=== PATIENT | female | born 2000 | race Caucasian/White ===

== ENCOUNTER 2019-03-21 14:17 | Emergency (ER) | payer MEDICAID, OTHER ==
[2019-03-21 15:32] VITALS: BP 123/75
--- NOTE | 2019-03-21 15:33 | Emergency Department Report ---
Chief Complaint: Skin Rash Stated Complaint: POISON MEG BREAKOUT Time Seen by Provider: 03/21/19 15:30 - HPI History of Present Illness: pt has rash to the face and right forearm (+) itching no drainage no fever no N/V/D states she was hiding eggs for her daughter went to [facility] got a cream OTC has not been helping has not using bendadryl no pmhx no daily meds no allergies to meds non smoker non drinker no drug use MSE screening note: Focused history and physical exam performed. ED Disposition for MSE Condition: Stable Referrals: JACKY FELTON MD [Primary Care Provider] - 3-5 Days
--- NOTE | 2019-03-21 16:34 | Emergency Department Report ---
- General Chief complaint: Skin Rash Stated complaint: POISON MEG BREAKOUT Time Seen by Provider: 03/21/19 15:30 Source: patient Mode of arrival: Ambulatory Limitations: No Limitations - History of Present Illness Initial comments: pt is a 18 yo female who has rash to the face and right forearm that began a week ago. She states she was out in the yard hiding easter eggs and it began shortly after that. She endorses itching. She denies any drainage, fever, N/V/D. Pt states that she went to [facility] got a cream OTC has not been helping. She has not been using benadryl. no pmhx, no daily meds, no allergies to meds, non smoker, non drinker, no drug use - Related Data Previous Rx's Medication Instructions Recorded Last Taken Type Hydrocortisone 0.5% 1 applicatio TP TID #1 tube 03/21/19 Unknown Rx [Hydrocortisone 0.5% CREAM] Prednisone [predniSONE 10 mg 10 mg PO .TAPER #1 tab.ds.pk 03/21/19 Unknown Rx (6-Day Pack, 21 Tabs)] Allergies Allergy/AdvReac Type Severity Reaction Status Date / Time No Known Allergies Allergy Verified 03/21/19 14:21 Abscess Boil HPI - HPI Chief Complaint: Skin Rash Stated Complaint: POISON MEG BREAKOUT Time Seen by Provider: 03/21/19 15:30 Home Medications: Previous Rx's Medication Instructions Recorded Last Taken Type Hydrocortisone 0.5% 1 applicatio TP TID #1 tube 03/21/19 Unknown Rx [Hydrocortisone 0.5% CREAM] Prednisone [predniSONE 10 mg 10 mg PO .TAPER #1 tab.ds.pk 03/21/19 Unknown Rx (6-Day Pack, 21 Tabs)] Allergies/Adverse Reactions: Allergies Allergy/AdvReac Type Severity Reaction Status Date / Time No Known Allergies Allergy Verified 03/21/19 14:21 ED Review of Systems ROS: Stated complaint: POISON MEG BREAKOUT Other details as noted in HPI Comment: All other systems reviewed and negative ED Past Medical Hx - Past Medical History Hx Hypertension: No Hx Congestive Heart Failure: No Hx Diabetes: No Hx Deep Vein Thrombosis: No Hx Renal Disease: No Hx Sickle Cell Disease: No Hx Seizures: No Hx Asthma: Yes Hx COPD: No Hx HIV: No - Social History Smoking Status: Never Smoker Substance Use Type: None - Medications Home Medications: Home Medications Medication Instructions Recorded Confirmed Last Taken Type Hydrocortisone 0.5% 1 applicatio TP TID #1 tube 03/21/19 Unknown Rx [Hydrocortisone 0.5% CREAM] Prednisone [predniSONE 10 mg 10 mg PO .TAPER #1 tab.ds.pk 03/21/19 Unknown Rx (6-Day Pack, 21 Tabs)] ED Physical Exam - General Limitations: No Limitations General appearance: alert, in no apparent distress - Head Head exam: Present: atraumatic, normocephalic - Eye Eye exam: Present: normal appearance - ENT ENT exam: Present: mucous membranes moist - Respiratory Respiratory exam: Absent: respiratory distress - Cardiovascular Cardiovascular Exam: Present: regular rate - Neurological Exam Neurological exam: Present: alert, oriented X3 - Psychiatric Psychiatric exam: Present: normal affect, normal mood - Skin Skin exam: Present: warm, dry, other (erythematous raised rash with areas of coalescence on the face and right forearm, no obvious weeping, no signs of infection ) ED Course Vital Signs 03/21/19 15:30 Temperature 98.6 F Pulse Rate 74 Respiratory 18 Rate Blood Pressure 123/75 O2 Sat by Pulse 98 Oximetry ED Medical Decision Making - Medical Decision Making pt is a 18 yo female who has rash to the face and right forearm that began a week ago. She states she was out in the yard hiding easter eggs and it began shortly after that. She endorses itching. She denies any drainage, fever, N/V/D. Pt states that she went to [facility] got a cream OTC has not been helping. She has not been using benadryl. no pmhx, no daily meds, no allergies to meds, non smoker, non drinker, no drug use. appears to have come into contact with poison bekah. no signs of secondary infection. will give pt hydrocortisone cream to use on the arm only, and steroids, and advised to take benadryl OTC. Advised pt to follow up with PCP in the next 2-3 days. Pt given list of community resources. Return to the ED for any new or worsening symptoms. Critical care attestation.: If time is entered above; I have spent that time in minutes in the direct care of this critically ill patient, excluding procedure time. ED Disposition Clinical Impression: Poison bekah Contact dermatitis Qualifiers: Contact dermatitis type: allergic Contact dermatitis trigger: non-food plants Qualified Code(s): L23.7 - Allergic contact dermatitis due to plants, except food Disposition: DC-01 TO HOME OR SELFCARE Is pt being admited?: No Does the pt Need Aspirin: No Condition: Stable Instructions: Poison Bekah (ED) Additional Instructions: Please use medication as prescribed. Do not use the ointment on the face. Take benadryl over the counter for itching. Please see a primary care doctor in the next 2-3 days. Given list of community resources. Return to the emergency room for any new or worsening symptoms as discussed. Prescriptions: Hydrocortisone 0.5% [Hydrocortisone 0.5% CREAM] 1 applicatio TP TID #1 tube Prednisone [predniSONE 10 mg (6-Day Pack, 21 Tabs)] 10 mg PO .TAPER #1 tab.ds.pk [facility] MD GUILLERMO [Primary Care Provider] - 2-3 Days Time of Disposition: 16:34 Print Language: CZECH
== END 2019-03-21 16:51 | disposition home or self-care (01) ==
LOC: ED 14:17
DX: L23.7 Allergic contact dermatitis due to plants, except food (principal); J45.909 Unspecified asthma, uncomplicated

== ENCOUNTER 2022-05-03 05:28 | Inpatient (IN) | payer MEDICAID ==
[2022-05-03] MEDS ORDERED: METHYLERGONOVINE MALEATE 0.2 MG/ML VIAL IM PRN (06:20)
[2022-05-03] MEDS ORDERED: miSOPROStol 200 MCG TAB PR PRN (06:20)
[2022-05-03] MEDS ORDERED: BUTORPHANOL 2 MG/1 ML INJ IV PRN (06:20)
[2022-05-03] MEDS ORDERED: MINERAL OIL 30 ML ORAL LIQD PO PRN (06:20)
[2022-05-03] MEDS ORDERED: LIDOCAINE (2%) 20 MG/1 ML VIAL 20 ML MDV INFILTRATI ONE (06:20)
[2022-05-03] MEDS ORDERED: OXYTOCIN 10 UNIT/1 ML INJ IM PRN (06:20)
[2022-05-03] MEDS ORDERED: CARBOPROST TROMETHAMINE 250 MCG/1 ML INJ IM PRN (06:20)
[2022-05-03] MEDS ORDERED: LOPERAMIDE 2 MG CAP PO PRN (06:20)
[2022-05-03] MEDS ORDERED: TERBUTALINE 1 MG/1 ML INJ SUB-Q PRN (06:20)
[2022-05-03] MEDS ORDERED: ACETAMINOPHEN 325 MG TAB PO PRN (06:20)
[2022-05-03] MEDS ORDERED: ePHEDrine SULFATE 50 MG/1 ML INJ IV PRN (06:20)
[2022-05-03] MEDS ORDERED: LACTATED RINGERS 1,000 ML IV SCH (06:30)
[2022-05-03] MEDS ORDERED: OXYTOCIN DRIP 30 UNITS/500 ML BAG IV SCH ×2 (07:00→20:00)
--- NOTE | 2022-05-03 09:08 | History and Physical Report ---
History of Present Illness Date of examination: 05/03/22 Date of admission: 05/03/22 06:20 Chief complaint: ctx and LOF at 3:50am History of present illness: at 37wks by LMP c/w U/S; care at [facility]. Pt gives c/o LOF and ctx. Pt denies vag bleed or headache. Pt admits to movement and declines epidural. records with O positive, neg screen, rubella immune, VDRL non-reactive, HepBsAg neg, HIV neg, 3hrgtt abnormal therefore GDM diagnosed this preg. GBS unknown. Past History Past Medical History: other (morbid obesity, gestational DM given glyburide script 6days ago but pt did not have time to fill it, she states. 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: abnormal PAP smear Social history: no significant social history - Obstetrical History Expected Date of Delivery: 05/24/22 Actual Gestation: 37 Week(s) 0 Day(s) : 2 Hx # Term Pregnancies: 1 Number of Living Children: 1 Medications and Allergies Allergies Allergy/AdvReac Type Severity Reaction Status Date / Time No Known Allergies Allergy Verified 05/03/22 06:14 Home Medications Medication Instructions Recorded Confirmed Last Taken Type Hydrocortisone 0.5% 1 applicatio TP TID #1 tube 03/21/19 Unknown Rx [Hydrocortisone 0.5% CREAM] Prednisone [predniSONE 10 mg 10 mg PO .TAPER #1 tab.ds.pk 03/21/19 Unknown Rx (6-Day Pack, 21 Tabs)] Active Meds: Active Medications Acetaminophen (Acetaminophen 325 Mg Tab) 650 mg PO Q4H PRN PRN Reason: Pain, Mild (1-3) Butorphanol Tartrate (Butorphanol 2 Mg/1 Ml Inj) 1 mg IV Q2H PRN PRN Reason: Pain, Moderate(4-6) LABOR PAIN Carboprost Tromethamine (Carboprost Tromethamine 250 Mcg/1 Ml Inj) 250 mcg IM ONCE PRN PRN Reason: Uterine Bleeding Ephedrine Sulfate (Ephedrine Sulfate 50 Mg/1 Ml Inj) 10 mg IV Q2M PRN PRN Reason: Hypotension Fentanyl (Fentanyl 100 Mcg/2 Ml Inj) 100 mcg IV Q2H PRN PRN Reason: Pain,Severe (7-10) LABOR PAIN Lactated Ringer's (Lactated Ringers) 1,000 mls @ 125 mls/hr IV DIRECT SHREYA Oxytocin/Sodium Chloride (Pitocin/Ns 30 Unit/500ml) 30 units in 500 mls @ 40 mls/hr IV TITR SHREYA; Protocol Loperamide HCl (Loperamide 2 Mg Cap) 2 mg PO ONCE PRN PRN Reason: give with Hemabate Methylergonovine Maleate (Methylergonovine Maleate 0.2 Mg/Ml Vial) 0.2 mg IM ONCE PRN PRN Reason: Uterine Bleeding Mineral Oil (Mineral Oil 30 Ml Oral Liqd) 30 ml PO QHS PRN PRN Reason: Constipation Misoprostol (Misoprostol 200 Mcg Tab) 800 mcg GA ONCE PRN PRN Reason: Uterine Bleeding Oxytocin (Oxytocin 10 Unit/1 Ml Inj) 10 unit IM ONCE PRN PRN Reason: Uterine Bleeding Terbutaline Sulfate (Terbutaline 1 Mg/1 Ml Inj) 0.25 mg SUB-Q ONCE PRN PRN Reason: Hyperstimulation/Hypertonicity Review of Systems All systems: negative (LOF) - Vital Signs Vital signs: Vital Signs Pulse Pulse Ox 108 H 97 05/03/22 05:52 05/03/22 05:52 Temp Pulse Resp BP Pulse Ox 98.0 F 121 H 16 113/59 98 05/03/22 06:10 05/03/22 08:54 05/03/22 06:10 05/03/22 06:12 05/03/22 08:54 - Physical Exam Breasts: Positive: deferred Cardiovascular: Regular rate Lungs: Positive: Normal air movement Abdomen: Positive: soft Genitourinary (Female): Positive: normal external genitalia Vulva: both: normal Vagina: Positive: normal moisture Uterus: Positive: enlarged (non-tender) - Obstetrical FHR: category 1 Uterine Contraction Monitor Mode: External Cervical Dilatation: 4 (5cm by CHIQUI Bah) Cervical Effacement Percentage: 70 station: -2 Uterine Contraction Pattern: Regular Uterine Contraction Intensity: Moderate Results Result Diagrams: 05/03/22 09:52 All other labs normal. Assessment and Plan Term IUP with SROM, gest DM, thrombocytopenia, Sickle cell Trait, non-compliant; Firtst baby with severe growth retardation. Unknown GBS 1. Admit to labor and delivery 2. GBS prophylaxis with PCN 3. May have IV pain med and epidural later if pt changes her mind 4. check CMP now and accucheck every 2hrs until active labor then hourly until delivered 5. Peds to eval baby with pericardial effusion and echo wnl in chart Plan of care discussed with pt and will proceed. Nurse given all the information noted in chart
[2022-05-03 10:50] LABS: Hematocrit 36.8 % (30.3-42.9); Hemoglobin 12.6 gm/dl (10.1-14.3); Mean Corpuscular HGB Conc 34 % (30-34); Mean Corpuscular Volume 83 fl (79-97); Platelet Count 152 K/mm3 (140-440); Red Blood Count 4.43 M/mm3 (3.65-5.03); Red Cell Distribution Width 14.1 % (13.2-15.2)
[2022-05-03] MEDS: fentaNYL 100 MCG/2 ML INJ IV PRN ×3 (10:53→21:08)
[2022-05-03] MEDS ORDERED: PENICILLIN G POTASSIUM 5 MIL.UNITS in SODIUM CHLORIDE 0.9% 50 ML IV ONE (11:00)
[2022-05-03] MEDS: PENICILLIN G POTASSIUM 3 MIL.UNITS in SODIUM CHLORIDE 0.9% 50 ML IV SCH ×2 (14:56→19:17)
--- NOTE | 2022-05-03 16:38 | Event Note ---
Date: 05/03/22 pt evaluated FHR is category 1 and pelvic now with forebag and AROM done with clear fluid; pt has received IV fentanyl twice and still in pain and declines epidural. Will give nubain and zofran now. Expect . Will augment using pitocin after pt comfortable
[2022-05-03] MEDS ORDERED: NalbUPHINE 10 MG/1 ML INJ IV PRN (16:41)
[2022-05-03] MEDS ORDERED: ONDANSETRON 4 MG/2 ML INJ IV PRN (17:24)
--- NOTE | 2022-05-03 23:49 | Procedure Note ---
OB Delivery Note - Delivery Date of Delivery: 05/03/22 Surgeon: STONE LISA Estimated blood loss: 200cc - Vaginal Delivery presentation: vertex Delivery position: OA Intrapartum events: shoulder dystocia, other(please specify) (gestational diabetes) Delivery induction: none Delivery augmentation: rupture of membranes, pitocin Delivery monitor: external FHT, external uterine, internal uterine Route of delivery: Delivery placenta: spontaneous Delivery cord: nuchal cord, 3 umbilical vessels Episiotomy: none Delivery laceration: none Anesthesia: none Delivery comments: Nurse called me to bedside with pt pushing prior to complete, my pelvic 9cm and pt continued to pushed and cervix gently pushed backwards as head crowned then head delivered and shoulder dystocia relieved with Tram position, suprapubic pressure and left posterior arm delivered followed by right anterior shoulder rotating baby counter clockwise and the body and feet followed. Vigorous stimulation done by rubbing the back of and touching feet with good cry response. NICU called to evaluate . Placenta delivered complete and intact with 3vessel cord. Pt sustained no lacerations. Mom and stable. Will notify peds concerning pericardial effusion and normal echo. - Infant A at 1 minute: 7 (wt 3200g; clear fluid) at 5 minutes: 9 Infant Gender: Female
[2022-05-04] MEDS ORDERED: ACETAMINOPHEN 325 MG TAB PO PRN (02:12)
[2022-05-04] MEDS ORDERED: LANOLIN/ZINC/DIMETHICONE (LANSINOH) 7 GM TP PRN (02:12)
[2022-05-04] MEDS ORDERED: MAGNESIUM HYDROXIDE (MOM) ORAL LIQD UDC PO PRN (02:12)
[2022-05-04] MEDS ORDERED: PROMETHAZINE 25 MG TAB PO PRN (02:12)
[2022-05-04] MEDS ORDERED: HYDROCORTISONE 25 MG RECTAL SUPP PR PRN (02:12)
[2022-05-04] MEDS ORDERED: OXYTOCIN DRIP 30 UNITS/500 ML BAG IV SCH (02:12)
[2022-05-04] MEDS ORDERED: diphenhydrAMINE 25 MG CAP PO PRN (02:12)
[2022-05-04] MEDS ORDERED: ONDANSETRON 4 MG/2 ML INJ IV PRN (02:12)
[2022-05-04] MEDS ORDERED: oxyCODONE /ACETAMINOPHEN 5-325MG TAB PO PRN (02:12)
[2022-05-04] MEDS ORDERED: WITCH HAZEL/ GLYCERIN PAD TP PRN (02:12)
[2022-05-04] MEDS ORDERED: BENZOCAINE/MENTHOL 20/0.5% TOP SPRAY 56 GM TP PRN (02:12)
[2022-05-04] MEDS ORDERED: PROMETHAZINE 25 MG RECT SUPP PR PRN (02:12)
[2022-05-04] MEDS: IBUPROFEN 800 MG TAB PO SCH ×3 (03:40→17:31)
--- NOTE | 2022-05-04 06:41 | Progress Note ---
Assessment and Plan PPD#1 doing well 1. for CBC later today and Routine care Subjective Date of service: 05/04/22 Principal diagnosis: PPD#1 Interval history: pt has no complaints and her vag bleed like a period. Objective - Constitutional Vitals: Vital Signs - 12hr 05/03/22 05/03/22 05/03/22 18:40 18:41 18:45 Temperature Pulse Rate 89 104 H 106 H Respiratory Rate Blood Pressure Blood Pressure [Right] O2 Sat by Pulse 98 92 97 Oximetry O2 Sat by Pulse Oximetry [ Posterior Bilateral Throughout] 05/03/22 05/03/22 05/03/22 18:47 18:50 19:01 Temperature Pulse Rate 100 H 113 H 37 L Respiratory Rate Blood Pressure Blood Pressure [Right] O2 Sat by Pulse 94 98 92 Oximetry O2 Sat by Pulse Oximetry [ Posterior Bilateral Throughout] 05/03/22 05/03/22 05/03/22 19:19 19:24 19:29 Temperature Pulse Rate 69 104 H 91 H Respiratory Rate Blood Pressure Blood Pressure [Right] O2 Sat by Pulse 91 99 98 Oximetry O2 Sat by Pulse Oximetry [ Posterior Bilateral Throughout] 05/03/22 05/03/22 05/03/22 19:34 19:35 19:39 Temperature Pulse Rate 114 H 112 H 115 H Respiratory Rate Blood Pressure Blood Pressure [Right] O2 Sat by Pulse 96 93 100 Oximetry O2 Sat by Pulse Oximetry [ Posterior Bilateral Throughout] 05/03/22 05/03/22 05/03/22 19:42 19:44 19:47 Temperature Pulse Rate 101 H 98 H Respiratory Rate Blood Pressure Blood Pressure [Right] O2 Sat by Pulse 83 L 95 Oximetry O2 Sat by Pulse 100 Oximetry [ Posterior Bilateral Throughout] 05/03/22 05/03/22 05/03/22 19:49 19:50 19:54 Temperature Pulse Rate 96 H 85 104 H Respiratory Rate Blood Pressure Blood Pressure [Right] O2 Sat by Pulse 100 87 99 Oximetry O2 Sat by Pulse Oximetry [ Posterior Bilateral Throughout] 05/03/22 05/03/22 05/03/22 19:55 19:59 20:01 Temperature Pulse Rate 103 H 104 H 110 H Respiratory Rate Blood Pressure Blood Pressure [Right] O2 Sat by Pulse 91 100 85 Oximetry O2 Sat by Pulse Oximetry [ Posterior Bilateral Throughout] 05/03/22 05/03/22 05/03/22 20:04 20:07 20:09 Temperature Pulse Rate 108 H 98 H 97 H Respiratory Rate Blood Pressure 120/71 Blood Pressure [Right] O2 Sat by Pulse 99 92 99 Oximetry O2 Sat by Pulse Oximetry [ Posterior Bilateral Throughout] 05/03/22 05/03/22 05/03/22 20:14 20:15 20:19 Temperature Pulse Rate 84 110 H 80 Respiratory Rate Blood Pressure Blood Pressure [Right] O2 Sat by Pulse 95 93 99 Oximetry O2 Sat by Pulse Oximetry [ Posterior Bilateral Throughout] 05/03/22 05/03/22 05/03/22 20:20 20:24 20:29 Temperature Pulse Rate 85 110 H 108 H Respiratory Rate Blood Pressure Blood Pressure [Right] O2 Sat by Pulse 94 85 81 L Oximetry O2 Sat by Pulse Oximetry [ Posterior Bilateral Throughout] 05/03/22 05/03/22 05/03/22 20:32 20:34 20:44 Temperature Pulse Rate 98 H Respiratory Rate Blood Pressure Blood Pressure [Right] O2 Sat by Pulse 73 L 97 93 Oximetry O2 Sat by Pulse Oximetry [ Posterior Bilateral Throughout] 05/03/22 05/03/22 05/03/22 22:12 22:22 23:31 Temperature Pulse Rate 100 H 116 H 127 H Respiratory Rate Blood Pressure 119/84 Blood Pressure [Right] O2 Sat by Pulse 98 98 Oximetry O2 Sat by Pulse Oximetry [ Posterior Bilateral Throughout] 05/03/22 05/03/22 05/03/22 23:36 23:41 23:46 Temperature Pulse Rate 126 H 114 H 124 H Respiratory Rate Blood Pressure Blood Pressure [Right] O2 Sat by Pulse 98 94 98 Oximetry O2 Sat by Pulse Oximetry [ Posterior Bilateral Throughout] 05/03/22 05/03/22 05/03/22 23:50 23:51 23:56 Temperature 97.9 F Pulse Rate 111 H 128 H 133 H Respiratory 18 Rate Blood Pressure 117/76 Blood Pressure [Right] O2 Sat by Pulse 98 98 Oximetry O2 Sat by Pulse Oximetry [ Posterior Bilateral Throughout] 05/04/22 05/04/22 05/04/22 00:01 00:06 00:11 Temperature Pulse Rate 106 H 97 H 101 H Respiratory Rate Blood Pressure Blood Pressure [Right] O2 Sat by Pulse 96 97 97 Oximetry O2 Sat by Pulse Oximetry [ Posterior Bilateral Throughout] 05/04/22 05/04/2205/04/22 00:16 00:21 00:26 Temperature Pulse Rate 97 H 117 H 131 H Respiratory Rate Blood Pressure Blood Pressure [Right] O2 Sat by Pulse 98 95 97 Oximetry O2 Sat by Pulse Oximetry [ Posterior Bilateral Throughout] 05/04/22 05/04/22 05/04/22 00:31 00:36 01:05 Temperature Pulse Rate 124 H 130 H 81 Respiratory Rate Blood Pressure Blood Pressure [Right] O2 Sat by Pulse 97 96 97 Oximetry O2 Sat by Pulse Oximetry [ Posterior Bilateral Throughout] 05/04/22 05/04/22 05/04/22 01:06 01:10 01:15 Temperature Pulse Rate 86 100 H 105 H Respiratory Rate Blood Pressure 111/59 Blood Pressure [Right] O2 Sat by Pulse 97 96 Oximetry O2 Sat by Pulse Oximetry [ Posterior Bilateral Throughout] 05/04/22 05/04/22 05/04/22 01:20 01:25 01:30 Temperature Pulse Rate 87 115 H 106 H Respiratory Rate Blood Pressure Blood Pressure [Right] O2 Sat by Pulse 97 97 96 Oximetry O2 Sat by Pulse Oximetry [ Posterior Bilateral Throughout] 05/04/22 05/04/22 05/04/22 01:45 03:05 04:41 Temperature 97.9 F 97.8 F Pulse Rate 95 H 95 H Respiratory 16 18 Rate Blood Pressure 113/65 Blood Pressure 107/80 [Right] O2 Sat by Pulse 99 96 Oximetry O2 Sat by Pulse 100 Oximetry [ Posterior Bilateral Throughout] General appearance: Present: no acute distress - Neck Neck: normal ROM - Respiratory Respiratory effort: normal - Breasts Breasts: deferred - Cardiovascular Rhythm: regular Extremities: No edema - Gastrointestinal General gastrointestinal: Present: soft, non-tender - Genitourinary Female genitourinary: other (Firm fundus at the umbilicus and lochia moderate) - Neurologic Neurologic: moves all extremities - Psychiatric Psychiatric: cooperative - Labs CBC & Chem 7: 05/03/22 09:52 Labs: Abnormal lab results 05/03/22 05/03/22 05/03/22 Range/Units 09:52 16:09 20:51 WBC 13.1 H (4.5-11.0) K/mm3 POC Glucose 60 L 116 H (70-105) mg/dL 05/04/22 05/04/22 Range/Units 02:36 05:23 WBC (4.5-11.0) K/mm3 POC Glucose 159 H 130 H (70-105) mg/dL Medications & Allergies - Medications Allergies/Adverse Reactions: Allergies No Known Allergies Allergy (Verified 05/03/22 06:14) Home Medications: Home Medications Medication Instructions Recorded Confirmed Last Taken Type Hydrocortisone 0.5% 1 applicatio TP TID #1 tube 03/21/19 Unknown Rx [Hydrocortisone 0.5% CREAM] Prednisone [predniSONE 10 mg 10 mg PO .TAPER #1 tab.ds.pk 03/21/19 Unknown Rx (6-Day Pack, 21 Tabs)] Active Medications: Generic Name Dose Route Start Last Admin Trade Name Freq PRN Reason Stop Dose Admin Acetaminophen 650 mg 05/03/22 06:20 Acetaminophen 325 Mg Tab PO Q4H PRN Pain, Mild (1-3) Benzocaine/Menthol 1 spray 05/04/22 02:12 Benzocaine/Menthol 20/0.5% [place] 56 Gm TP PRN PRN Episiotomy Pain Bisacodyl 10 mg 05/04/22 02:12 Bisacodyl 10 Mg Rect Supp GA BID PRN Constipation Carboprost Tromethamine 250 mcg 05/03/22 06:20 Carboprost Tromethamine 250 Mcg/1 Ml Inj IM ONCE PRN Uterine Bleeding Diphenhydramine HCl 25 mg 05/04/22 02:12 Diphenhydramine 25 Mg Cap PO Q6H PRN Itching Hydrocortisone Acetate 25 mg 05/04/22 02:12 Hydrocortisone 25 Mg Rectal Supp GA BID PRN Hemorrhoids Lactated Ringer's 1,000 mls @ 125 mls/hr 05/03/22 06:30 05/03/22 19:21 Lactated Ringers IV 125 mls/hr DIRECT SHREYA Administration Oxytocin/Sodium Chloride 30 units in 500 mls @ 40 mls/hr 05/04/22 02:12 Pitocin/Ns 30 Unit/500ml IV TITR [facility] Protocol Ibuprofen 800 mg 05/04/22 02:12 05/04/22 03:40 Ibuprofen 800 Mg Tab PO 800 mg Q6HR SHREYA Administration Loperamide HCl 2 mg 05/03/22 06:20 Loperamide 2 Mg Cap PO ONCE PRN give with Hemabate Magnesium Hydroxide 30 ml 05/04/22 02:12 Magnesium Hydroxide (Mom) Oral Liqd Udc PO HS PRN Constipation Mineral Oil 30 ml 05/03/22 06:20 Mineral Oil 30 Ml Oral Liqd PO QHS PRN Constipation Misoprostol 800 mcg 05/03/22 06:20 Misoprostol 200 Mcg Tab GA ONCE PRN Uterine Bleeding Multi-Ingredient Ointment 1 applic 05/04/22 02:12 Lanolin/Zinc/Dimethicone (Lansinoh) 7 Gm TP PRN PRN Sore Nipples Multivitamins/Iron/Calcium 1 each 05/04/22 10:00 Xhh75-Ls Fumarate-Folic Acid Vit Tab PO QDAY SHREYA Ondansetron HCl 4 mg 05/04/22 02:12 Ondansetron 4 Mg/2 Ml Inj IV Q8H PRN Nausea And Vomiting Oxycodone/Acetaminophen 2 tab 05/04/22 02:12 Oxycodone /Acetaminophen 5-325mg Tab PO Q4H PRN Pain, Moderate (4-6) Oxytocin 10 unit 05/03/22 06:20 Oxytocin 10 Unit/1 Ml Inj IM ONCE PRN Uterine Bleeding Promethazine HCl 25 mg 05/04/22 02:12 Promethazine 25 Mg Rect Supp GA Q6H PRN Nausea And Vomiting Promethazine HCl 25 mg 05/04/22 02:12 Promethazine 25 Mg Tab PO Q6H PRN Nausea And Vomiting Sodium Chloride 10 ml 05/04/22 02:12 Sodium Chloride 0.9% 10 Ml Flush Syringe IV 05/05/22 02:11 PRN NR Witch Lorenza/Glycerin 1 each 05/04/22 02:12 Witch Lorenza/ Glycerin Pad TP PRN PRN Hemorrhoid/cleansing/soothing
[2022-05-04] MEDS: PRENATAL VIT27-FE FUMARATE-FOLIC ACID VIT TAB PO SCH (09:25)
[2022-05-04 17:28] LABS: Hematocrit 37.4 % (30.3-42.9); Hemoglobin 12.6 gm/dl (10.1-14.3); Mean Corpuscular HGB Conc 34 % (30-34); Mean Corpuscular Volume 83 fl (79-97); Platelet Count 165 K/mm3 (140-440); Red Blood Count 4.48 M/mm3 (3.65-5.03); Red Cell Distribution Width 14.5 % (13.2-15.2)
[2022-05-05] MEDS: IBUPROFEN 800 MG TAB PO SCH ×3 (06:06→11:48)
[2022-05-05] MEDS: PRENATAL VIT27-FE FUMARATE-FOLIC ACID VIT TAB PO SCH (09:20)
[2022-05-05] MEDS: AMOXICILLIN/K CLAV 875/125MG TAB PO SCH ×2 (09:20)
--- NOTE | 2022-05-05 11:26 | Discharge Summary ---
Providers - Providers Date of Admission: 05/03/22 06:20 Date of discharge: 05/05/22 Attending physician: STONE Griffin MD Primary care physician: STONE LISA Hospitalization Reason for admission: active labor Delivery: Episiotomy: none Laceration: none Discharge diagnosis: IUP at term delivered Condition at discharge: Good Disposition: 01 HOME / SELF CARE / HOMELESS Plan - Discharge Medications Prescriptions: Ibuprofen [Motrin 800 MG tab] 800 mg PO Q8HR #30 tablet - Provider Discharge Summary Activity: no sex for 6 weeks, no heavy lifting 4 weeks, no strenuous exercise Diet: routine Instructions: routine Additional instructions: [] Smoking cessation referral if applicable(refer to patient education folder for contact #) [] Refer to [employer] Booklet Call your doctor immediately for: * Fever > 100.5 * Heavy vaginal bleeding ( >1 pad per hour) * Severe persistent headache * Shortness of breath * Reddened, hot, painful area to leg or breast * Drainage or odor from incision. * Keep incision clean and dry at all times and follow doctor's instructions regarding bathing/showering - Follow up plan Follow up: STONE LISA MD [Primary Care Provider] - 6 Weeks Forms: [facility] Discharge Summary
[2022-05-05 12:23] LABS: Basophils # (Auto) 0.1 K/mm3 (0.0-0.1); Basophils % (Auto) 0.5 % (0.0-1.8); Eosinophils # (Auto) 0.1 K/mm3 (0.0-0.4); Eosinophils % (Auto) 0.7 % (0.0-4.3); Hematocrit 36.5 % (30.3-42.9); Hemoglobin 11.8 gm/dl (10.1-14.3); Lymphocytes # (Auto) 1.9 K/mm3 (1.2-5.4); Lymphocytes % (Auto) 13.8 % (13.4-35.0); Mean Corpuscular HGB Conc 32 % (30-34); Mean Corpuscular Volume 84 fl (79-97); Monocytes # (Auto) 0.6 K/mm3 (0.0-0.8); Monocytes % (Auto) 4.6 % (0.0-7.3); Platelet Count 155 K/mm3 (140-440); Red Blood Count 4.33 M/mm3 (3.65-5.03); Red Cell Distribution Width 14.4 % (13.2-15.2)
[2022-05-05 16:11] VITALS: BP 106/59
== END 2022-05-05 14:30 | disposition home or self-care (01) | DRG 775 ==
LOC: LD 05:28 → TRG 05:28 → LD 06:20 → TRG 06:20 → OB 05-04 01:38
PROVIDERS: ADMIT Obstetrics & Gynecology; ATTEND Obstetrics & Gynecology
PROC: 10E0XZZ Delivery of Products of Conception, External Approach (ICD-10-PCS; principal; 2022-05-03)
DX: O24.429 Gestational diabetes mellitus in childbirth, unspecified control (principal); Z3A.37 37 weeks gestation of pregnancy; Z37.0 Single live birth; Z20.822 Contact with and (suspected) exposure to COVID-19; O99.214 Obesity complicating childbirth; E66.01 Morbid (severe) obesity due to excess calories; O66.0 Obstructed labor due to shoulder dystocia; O69.81X0 Labor and delivery complicated by cord around neck, without compression, not applicable or unspecified; O99.12 Other diseases of the blood and blood-forming organs and certain disorders involving the immune mechanism complicating childbirth; D69.6 Thrombocytopenia, unspecified
CPT/HCPCS: 36415; 82962; 83036; 85025; 85027; 86850; 86900; 86901; G0378; J2300; J2405; J2540; J2590; J3010; J7120; U0003